=== PATIENT | male | born 1945 | race Caucasian/White ===

== ENCOUNTER 2016-05-08 22:01 | Emergency (ER) | payer MEDICARE ==
[~2016-05-08] VITALS: Ht 180.3 cm; Wt 95.9 kg
[2016-05-08 22:04] VITALS: BP 172/77; PULSE 72; RESP 20; O2SAT 97
[2016-05-08 23:38] LABS: BASOPHILS % (AUTO) 0.6 % (0-3); EOSINOPHILS % (AUTO) 3.8 % (0-5); MONOCYTES % (AUTO) 10.2 % (4-12); Mean Corpuscular Hemoglobin 29.1 pg (27.0-35.0); Mean Corpuscular Volume 88.2 fL (81-100); NEUTROPHILS % (AUTO) 59.9 % (40-74); Platelet Count 187 bil/L (150-400)
[2016-05-09 00:04] LABS: D-DIMER 3.4 mg/L (<0.50); INR 0.92 ratio
[2016-05-09 00:21] LABS: Magnesium 2.2 mg/dL (1.6-2.6); TROPONIN T 0.022 ug/L (0.0-0.011)
--- NOTE | 2016-05-09 00:35 | ED.REPORT ---
HPI-Extremity Problem Lower Date of Service May 09, 2016 ED Provider: Peri Zhou MD Patient is a 70 year old male with a history of diabetes mellitus with peripheral neuropathy, hypertension, and renal insufficiency who presents to the ED complaining of swelling to his right leg that began 2-3 days ago. The patient reports pain with weight bearing or if he touches his leg. He denies pain with movement or when he is just laying still. He denies any recent trauma or injury to the leg, however he did injury his leg when putting up the [place] lights several months ago. Patient denies noting any redness of his leg, but his states that his leg appears red and feels warm to her. Patient denies chest pain, shortness of breath, nausea, vomiting, fever, or chills. Patient took a [address] trip last summer but denies recent long plane rides, hospitalizations, or orthopedic surgeries. Patient is on 81mg aspirin daily. Nursing Notes Stated Complaint: RIGHT LEG SWELLING DIABETIC Chief Complaint: Extremity Trauma Nursing Notes Reviewed: Yes Allergies: Coded Allergies: lorazepam (Verified Allergy, Mild, 05/08/16) Scheduled Clindamycin (Clindamycin) 300 Mg Capsule 300 MG PO QID General Time Seen by MD: 00:33 Chief Complaint Leg injury right Hx Obtained From: Patient Arrived By: Walk-in Onset Occurred: 2 days ago Symptom Duration: Since onset Location: : Leg right Quality: Painful Severity: Current: No pain currently Severity: Maximum: Moderate Recent Healthcare: No recent doctor visit, No recent hospitalization Similar Sx Previous: No Past Medical History Past Medical History diabetes mellitus with peripheral neuropathy and retinopathy heart murmur Reports: Hypertension Reports: Renal insufficiency Past Surgical History Right toe amputation Smoking History Unknown if Ever Smoker Social History Other Social History: Good social support, Local resident Ambulatory Status Independent Review of Systems Constitutional: Denies: Chills, Fever Musculoskeletal: Reports: Extremity pain, Extremity swelling Complete sys rev & neg: except as marked. Respiratory: Denies: Shortness of breath Cardiovascular: Denies: Chest pain GI: Denies: Nausea, Vomiting Physical Exam Physical Exam Notes: Initial Vital Signs Vital Signs (First) Date Time Temp Pulse Resp B/P Pulse Ox O2 Delivery O2 Flow Rate FiO2 05/08/16 22:04 37.1 72 20 172/77 97 Room Air Initial VS: Reviewed Head / Eyes: Atraumatic, Normocephalic, PERRL ENT: Conjunctiva normal Neck: Supple, Full range of motion Respiratory: Breath sounds normal, Clear to auscultation, No respiratory distress Abdomen / GI: Soft, Non-tender, No distention Upper Extremities: Vascular intact, Neuro intact, No swelling Skin: Warm, Dry, No cyanosis Neurologic: Alert, Oriented, Nonfocal Psychiatric: Mood/affect normal, Behavior normal, Normal thought content Lower Extremity / Pelvis / MS: Neurologic intact, Vascular intact Right Leg / Calf: Positive: R calf > L calf 2+ edema of the right lower extremity mild erythema on the medial aspect of the calf Ankle / Foot: Neurologic intact, Vascular intact Cardiovascular: Heart rate NL, Regular rhythm Heart Sounds / Murmur: Positive: Murmur present... (III/ ejection murmur) Interpretation & Diagnostics US DVT CONCLUSION: No sonographic evidence of deep venous thrombosis. Radiologist: Cuco Galarza MD 05/09/2016 - 1:39:08 AM PDT Lab Results Interpretation Result Diagram: 05/08/16 2325 05/08/16 2325 Test 05/08/16 23:20 05/08/16 23:25 Hold Gates Top Tube Received (Received) White Blood Count 6.8th/mm3 (3.8-10.1) Red Blood Count 3.64mil/mm3 (4.40-5.80) Hemoglobin 10.6g/dL (13.8-17.2) Hematocrit 32.1% (41.0-50.0) Mean Corpuscular Volume 88.2fL (81-100) Mean Corpuscular Hemoglobin 29.1pg (27.0-35.0) Mean Corpuscular Hemoglobin Concent 33.0% (32.0-37.0) Red Cell Distribution Width 13.9% (12.3-15.4) Platelet Count 187bil/L (150-400) Neutrophils (%) (Auto) 59.9% (40-74) Lymphocytes (%) (Auto) 25.4% (14-46) Monocytes (%) (Auto) 10.2% (4-12) Eosinophils (%) (Auto) 3.8% (0-5) Basophils (%) (Auto) 0.6% (0-3) Prothrombin Time 9.8sec (8.1-12.5) Prothromb Time International Ratio 0.92ratio Activated Partial Thromboplast Time 25.2sec (22.8-33.0) D-Dimer 3.4mg/L (<0.50) Sodium Level 137mEq/L (134-144) Potassium Level 4.5mEq/L (3.5-5.2) Chloride Level 99mEq/L (97-108) Carbon Dioxide Level 24mmol/L (18-29) Blood Urea Nitrogen 62mg/dL (8-27) Creatinine 2.74mg/dL (0.76-1.27) Estimat Glomerular Filtration Rate 25mL/min (>59) Glucose Level 229mg/dL (60-99) Calcium Level 9.0mg/dL (8.5-10.1) Magnesium Level 2.2mg/dL (1.6-2.6) Total Bilirubin 0.2mg/dL (0.0-1.2) Aspartate Amino Transf (AST/SGOT) 20U/L (0-50) Alanine Aminotransferase (ALT/SGPT) 15U/L (0-44) Alkaline Phosphatase 68U/L (25-160) Troponin T 0.022ug/L (0.0-0.011) Pro-B-Type Natriuretic Peptide 682.5pg/mL (0-376) Total Protein 7.2g/dL (6.4-8.4) Albumin 3.6g/dL (3.4-5.0) X-Ray Chest Interpretation Chest Xray Interpretation: Impression: cardiomegaly. Mild cephalization. View: Portable Interpretation / Wet Read by: Wet read ED physician Re-Eval/Medical Decision Med Decision/Clinical Course 70-year-old male with extensive past medical history including hypertension, diabetes, neuropathy, chronic kidney disease here with pain, redness, swelling of his right lower extremity for the last several days. He has no known trauma. Differential diagnosis includes but is not limited to DVT versus dependent edema versus cellulitis versus chronic kidney disease. Labs are remarkable for CK D with elevated creatinine. Troponin was ordered prior to my ordering it by nurse initiated protocol. Patient denies any chest pain or shortness of breath, and I would not have ordered the troponin. It came back mildly elevated, likely secondary to his CK D. He has no leukocytosis, and in normal CBC. His DVT study was negative. At this time, I am treating him as though he has cellulitis despite his lack of leukocytosis. He was given clindamycin in the emergency department and discharged with a prescription for the same. He was given very strict return precautions and is amenable to discharge at this time. Re-Evaluation/Progress : Time of Eval: 01:46 Patient Status: Condition improved Re-Evaluation/Progress Note: Rechecked the patient. He was informed that the ultrasound was negative for DVT. He will be treated for cellulitis. Patient understands and agrees with the plan to be discharged home. Discharge instructions and follow-up discussed. All questions were addressed. Return to the ED warnings given. Counseled Regarding: Diagnosis, Lab results, Need for follow-up, When/why to return to ED Discharge & Departure Impression: Primary Impression: Cellulitis of right lower extremity Disposition: Home Discharge Condition All VS Reviewed: Yes Condition: Stable Patient Instructions: Cellulitis (ED) Additional Instructions: The ultrasound of your leg was negative for a blood clot. Your symptoms are consistent with cellulitis. Take Clindamycin as directed for cellulitis. Follow-up with your doctor early next week. Return to the Emergency Department if you develop worsening leg swelling, leg pain, chest pain, shortness of breath, fever, or any other concerning symptoms. Your blood pressure was elevated in the emergency department today. You should follow-up with your primary care physician regarding your high blood pressure, as your blood pressure medications may need to be adjusted. Referrals: Ronald Oviedo MD (PCP) Milly Attestation Portions of this note were transcribed by Debo Cardoso. I, Dr. Zhou personally performed the history, physical exam and medical decision-making; I reviewed and confirmed the accuracy of the information in the transcribed note. Signed by: Milly Sewell, 05/09/2016 0153 copies to: Ronald Oviedo MD, Rebecca A MD May 09, 2016 00:35 Debo Cardoso May 09, 2016 00:51
[2016-05-09] MEDS ORDERED: CLIN-78 PO (01:50)
[2016-05-09 02:14] VITALS: BP 158/82; PULSE 72; RESP 16; O2SAT 98
--- NOTE | 2016-05-09 10:06 | DRSVH ---
PROCEDURE: X-RAY CHEST ONE VIEW, PORTABLE ([id number]) INDICATIONS: leg edema TECHNIQUE: One view of the chest was acquired. COMPARISON: None. FINDINGS: Surgical changes and devices: None. Lungs and pleura: No pleural effusions or pneumothorax. Lungs are clear. Mediastinum: Mediastinal contours appear normal. Heart size is normal. Bones and chest wall: No suspicious bony lesions. Overlying soft tissues appear unremarkable. IMPRESSION: No acute cardiopulmonary disease. Dictated by: Skinny Downing [facility] Interpreted: Maria Victoria Gary MD on 05/09/2016 at 10:05 Transcribed by: YRIS on 05/09/2016 at 10:05 Approved by: Maria Victoria Gary MD, PhD on 05/09/2016 at 16:57
--- NOTE | 2016-05-09 10:06 | DRSVH ---
PROCEDURE: US VEINOUS LEG DUPLEX UNILATERAL, RIGHT INDICATIONS: leg swelling TECHNIQUE: Real-time imaging, as well as color and pulse Doppler interrogation, were performed of the lower extr emity deep veins from the inguinal ligament to the popliteal fossa. COMPARISON: None. FINDINGS: The deep veins are normally compressible, and free of intraluminal thrombus. Color and pu lse Doppler demonstrate normal phasic intraluminal flow. There is normal augmentation response to di stal compression maneuver. IMPRESSION: No deep venous thrombosis identified within the right lower extremity. Dictated by: Skinny Downing [facility] Interpreted: Maria Victoria Gary MD on 05/09/2016 at 10:05 Transcribed by: YRIS on 05/09/2016 at 10:06 Approved by: Maria Victoria Gary MD, PhD on 05/09/2016 at 16:57
== END 2016-05-09 02:16 | disposition home or self-care (01) ==
LOC: SED 22:01
DX: L03.115 Cellulitis of right lower limb (principal); E11.40 Type 2 diabetes mellitus with diabetic neuropathy, unspecified; E11.22 Type 2 diabetes mellitus with diabetic chronic kidney disease; E11.319 Type 2 diabetes mellitus with unspecified diabetic retinopathy without macular edema; I12.9 Hypertensive chronic kidney disease with stage 1 through stage 4 chronic kidney disease, or unspecified chronic kidney disease; N18.9 Chronic kidney disease, unspecified; Z79.82 Long term (current) use of aspirin; Z88.8 Allergy status to other drugs, medicaments and biological substances